=== PATIENT | female | born 1960 | race Hispanic/Latino ===

== ENCOUNTER → 2024-09-26 | Outpatient (CLI) | payer OTHER ==
--- NOTE | 2024-09-26 10:32 | HMCIMG ---
MR SHOULDER LEFT WO HISTORY: Pain COMPARISON: None TECHNIQUE: MRI of the left shoulder was performed utilizing multiple pulse sequences in axial, coronal and sagittal planes. Patient was not given contrast through intravenous route. FINDINGS: No abnormal signal intensity is seen of the visualized bony structure. Small subchondral cyst formations are seen in the left humeral head. Hypertrophic degenerative changes are seen of the acromioclavicular joint. There is downward sloping of acromion in a medial to lateral direction encroaching upon the rotator cuff tendon and muscles. Abnormal increased signal intensity is seen near the insertion site of the supraspinatus tendon may be related to partial tear with no stenosis. If there is clinical suspicion for complete tear, MR arthrogram may be helpful. Tiny amount of fluid is seen in the subacromial-subdeltoid bursa complex. The glenoid labrum is intact. Tiny joint effusion is seen. No appreciable amount of joint effusion is seen. IMPRESSION: 1. Abnormal increased signal intensity is seen near the insertion site of the supraspinatus tendon may be related to partial tear with no stenosis. If there is clinical suspicion for complete tear, MR arthrogram may be helpful.
== END | disposition home or self-care (01) ==
LOC: RAH 08:01
PROVIDERS: ATTEND Orthopaedic Surgery
DX: M19.012 Primary osteoarthritis, left shoulder (principal); M25.812 Other specified joint disorders, left shoulder
CPT/HCPCS: 73221